=== PATIENT | male | born 1990 | race Caucasian/White ===

== ENCOUNTER 2020-08-11 19:08 | Emergency (ER) | payer SELFPAY ==
[~2020-08-11] VITALS: Ht 162.6 cm; Wt 52.1 kg
[2020-08-11 19:25] VITALS: BP 145/82
[2020-08-11] MEDS ORDERED: AMOX1TAB61 PO (19:41)
[2020-08-11] MEDS ORDERED: IBUP-1007 PO (19:41)
--- NOTE | 2020-08-11 19:41 | PHYS DOC ---
Past Medical History Past Medical History: Asthma (ESTHER ALDANA APRN) Past Surgical History: No Surgical History (ESTHER ALDANA APRN) Smoking Status: Current Some Day Smoker Alcohol Use: Occasionally Drug Use: Marijuana (ESTHER ALDANA APRN) General Adult EDM: Chief Complaint: PUNCTURE WOUND HPI: HPI: Patient is a 30 year old male who presents with walking his dog when a group of pit bulls came towards him and jumped on his dog. When he tried to pull his dog out of the group a dog turned around and bit him in the right radial side of the hand. This caused 1 puncture wound that is 0.5cm and has scant bleeding and the second right below it is superficial and smaller than 0.5cm. Rating his pain a 8 out of 10. Patient needs a tetanus shot. Please report was made. The nurse is calling animal control. Unknown rabies status. (ESTHER ALDANA APRN) Review of Systems: Review of Systems: Constitutional: Denies fever or chills. [] Eyes: Denies change in visual acuity. [] HENT: Denies nasal congestion or sore throat. [] Respiratory: Denies cough or shortness of breath. [] Cardiovascular: Denies chest pain or edema. [] GI: Denies abdominal pain, nausea, vomiting, bloody stools or diarrhea. [] : Denies dysuria. [] Musculoskeletal: Denies back pain or joint pain. +Right hand pain [] Integument: Denies rash. +Right dorsal hand radial side dog bite [] Neurologic: Denies headache, focal weakness or sensory changes. +Tingling to Right palm of hand.[] Endocrine: Denies polyuria or polydipsia. [] Lymphatic: Denies swollen glands. [] Psychiatric: Denies depression or anxiety. [] (ESTHER ALDANA SERVER SYSTEMS ADMINISTRATOR) Heart Score: Risk Factors: Risk Factors: DM, Current or recent (<one month) smoker, HTN, HLP, family history of CAD, obesity. Risk Scores: Score 0 - 3: 2.5% MACE over next 6 weeks - Discharge Home Score 4 - 6: 20.3% MACE over next 6 weeks - Admit for Clinical Observation Score 7 - 10: 72.7% MACE over next 6 weeks - Early Invasive Strategies (ESTHER ALDANA APRN) Allergies: Allergies: Allergies Coded Allergies Type Severity Reaction Last Updated Verified No Known Drug Allergies 05/13/16 No (ESTHER ALDANA APRN) Physical Exam: PE: Constitutional: Well developed, well nourished, no acute distress, non-toxic appearance. [] HENT: Normocephalic, atraumatic, bilateral external ears normal, oropharynx moist, no oral exudates, nose normal. [] Eyes: PERRLA, EOMI, conjunctiva normal, no discharge. [] Neck: Normal range of motion, no tenderness, supple, no stridor. [] Cardiovascular:Heart rate regular rhythm, no murmur [] Lungs & Thorax: Bilateral breath sounds clear to auscultation [] Abdomen: Bowel sounds normal, soft, no tenderness, no masses, no pulsatile masses. [] Skin: Warm, dry, no erythema, no rash. Right dorsal hand puncture wounds. [] Back: No tenderness, no CVA tenderness. [] Extremities: No tenderness, no cyanosis, no clubbing, ROM intact, no edema. [] Neurologic: Alert and oriented X 3, normal motor function, normal sensory function, no focal deficits noted. [] Psychologic: Affect normal, judgement normal, mood normal. [] (ESTHER ALDANA APRN) EKG: EKG: [] (ESTHER ALDANA APRN) Radiology/Procedures: Radiology/Procedures: [] Impression: [facility] [address] [place], [place] [id number] IMAGING REPORT Signed PATIENT: TAYA ARREGUIN ACCOUNT: [id number] : 1990 LOCATION: ER AGE: 30 SEX: M EXAM STATUS: REG ER ORD. PHYSICIAN: ESTHER ALDANA APRN REASON: right hand pain after being bit by dog. PROCEDURE: HAND RIGHT 3V Exam performed: Right hand 3 views. Indication: Right hand pain after being bit by a dog. Date of Service: 08/11/2020 Comparison: None available Discussion: PA, oblique lateral radiographs of the hand reveal the osseous structures to be intact and well aligned. The joint spaces are well-preserved. The articular margins are smooth. No soft tissue swelling or foreign bodies detected. Impression: Radiographically normal right hand. Electronically signed by: Melanie Wagner MD (08/11/2020 8:22 PM) [facility] DICTATED and SIGNED BY: MELANIE WAGNER MD DATE: 08/11/[id number] 0 (ESTHER ALDANA APRN) Course & Med Decision Making: Course & Med Decision Making Pertinent Labs and Imaging studies reviewed. (See chart for details) See HPI. Alert and oriented x4. Ambulatory with steady gait. Patient can make a full tight fist with the affected right hand. All joints are intact and no deformity. No joint swelling. No joint redness. The bites do not over joints. Skin pink warm and dry. Radial pulse is strong present. No swelling is noted at this time to the hand. Cap refill less than 2 seconds. No bruising is seen as of yet. Patient states there is slight tingling to the palm of the hand on the radial side just below the thumb. Patient is given a tetanus shot. It is cleaned with chlorhexidine and flushed with saline. Patient will be placed on Augmentin antibiotic. X-ray shows no acute findings. Police have been dispatched here to speak with the patient and also to the house where the dog to lives. Mare THURMAN spoke with Officer [employer] who was dispatched on this case and he stated that the dog whereabouts are unknown and he has not been called. He states that the rabies status is unknown. I will start the rabies prophylaxis and the patient. We will need to return on August 14, August 18, August 25 for rabies vaccines. [] (ESTHER ALDANA APRN) Course & Med Decision Making I have reviewed the PA/WINDOWS SYSTEMS ADMIN's note and Plan of Care. I was available for consultation as needed during the patient's visit in the emergency department. I agree with the clinical impression, plans and disposition. (VERONICA HARDING MD) Hector Disclaimer: Hector Disclaimer: This electronic medical record was generated, in whole or in part, using a voice recognition dictation system. (ESTHER ALDANA APRN) Departure Departure Impression: Primary Impression: Dog bite of hand Qualified Codes: S61.451A - Open bite of right hand, initial encounter; W54.0XXA - Bitten by dog, initial encounter Disposition: 01 DC HOME SELF CARE/HOMELESS Condition: STABLE Referrals: NO PCP (PCP) Patient Instructions: Animal Bite Additional Instructions: Follow-up with a primary care physician as needed. Keep the area clean and dry. Take antibiotic as it is prescribed and until it is gone. Return on 08/14, 08/18, and 08/25 for rabies vaccines. Scripts Ibuprofen (IBUPROFEN) 600 Mg Tablet 600 MG PO PRN Q6HRS PRN for INFLAMMATION, #20 TAB Prov: ESTHER ALDANA APRN 08/11/20 Amoxicillin/Potassium Clav (AUGMENTIN 875-125 TABLET) 1 Each Tablet 1 TAB PO BID for 10 Days, #20 TAB 0 Refills Prov: ESTHER ALDANA APRN 08/11/20 ESTHER ALDANA APRN Aug 11, 2020 19:41 VEORNICA HARDING MD Aug 11, 2020 21:14
[2020-08-11] MEDS ORDERED: IBUPROFEN 400 MG TABLET. PO ONE (20:00)
[2020-08-11] MEDS ORDERED: DIPH,PERTUSS(ACELL),TET VAC/PF 0.5 ML SYRINGE. VAX IM ONE (20:00)
--- NOTE | 2020-08-11 20:25 | RAD ---
Exam performed: Right hand 3 views. Indication: Right hand pain after being bit by a dog. Date of Service: 08/11/2020 Comparison: None available Discussion: PA, oblique lateral radiographs of the hand reveal the osseous structures to be intact and well align ed. The joint spaces are well-preserved. The articular margins are smooth. No soft tissue swelling or foreign bodies detected. Impression: Radiographically normal right hand. Electronically signed by: Melanie Wagner MD (08/11/2020 8:22 PM) [facility]
[2020-08-11] MEDS ORDERED: RABIES IMMUNE GLOBULIN PF 300 UNIT / 1 ML VIAL. VAX IM ONE (21:00)
[2020-08-11] MEDS ORDERED: RABIES IMMUNE GLOBULIN PF 300 UNIT/ML 5ML VIAL VAX IM ONE (21:15)
[2020-08-11] MEDS ORDERED: RABIES VIRUS VACC PF 2.5 UNIT / 1 ML VIAL. VAX IM ONE (21:30)
== END 2020-08-11 21:40 | disposition home or self-care (01) ==
LOC: ER 19:08
DX: S61.451A Open bite of right hand, initial encounter (principal); J45.909 Unspecified asthma, uncomplicated; F12.90 Cannabis use, unspecified, uncomplicated; F17.200 Nicotine dependence, unspecified, uncomplicated; W54.0XXA Bitten by dog, initial encounter; Y93.89 Activity, other specified; Y92.89 Other specified places as the place of occurrence of the external cause; Y99.8 Other external cause status
CPT/HCPCS: 73130; 90375; 90471; 90675; 90715; 99284

== ENCOUNTER 2020-08-14 21:27 | Emergency (ER) | payer SELFPAY ==
[~2020-08-14] VITALS: Ht 162.6 cm; Wt 59.0 kg
[~2020-08-14 21:27] MED LIST: AMOX1TAB61 PO; IBUP-1007 PO
[2020-08-14 22:55] VITALS: BP 112/89
[2020-08-14] MEDS: RABIES VIRUS VACC PF 2.5 UNIT / 1 ML VIAL. VAX IM ONE (23:02)
--- NOTE | 2020-08-14 23:05 | PHYS DOC ---
Past Medical History Past Medical History: No Pertinent History, Asthma Past Surgical History: No Surgical History Smoking Status: Current Every Day Smoker Alcohol Use: Occasionally Drug Use: Marijuana General Adult EDM: Chief Complaint: OTHER COMPLAINTS HPI: HPI: Patient is a 30 year old male who presents to the ED today for rabies vaccine. Patient had a dog bite on the right hand on August 11, 2020. Review of Systems: Review of Systems: Constitutional: Denies fever or chills. [] Musculoskeletal: Denies back pain or joint pain. [] Integument: Dog bite to the right hand, rabies vaccine Neurologic: Denies headache, focal weakness or sensory changes. [] Psychiatric: Denies depression or anxiety. [] Heart Score: Risk Factors: Risk Factors: DM, Current or recent (<one month) smoker, HTN, HLP, family history of CAD, obesity. Risk Scores: Score 0 - 3: 2.5% MACE over next 6 weeks - Discharge Home Score 4 - 6: 20.3% MACE over next 6 weeks - Admit for Clinical Observation Score 7 - 10: 72.7% MACE over next 6 weeks - Early Invasive Strategies Current Medications: Current Medications Medications (Trade) Dose Ordered Sig/Jamil Start Time Stop Time Status Last Admin Dose Admin Rabies Vaccine Human Diploid Cell (Imovax Rabies 2.5 Unit / ml) 1 ml ONCE ONCE 08/14/20 23:00 08/14/20 23:01 DC 08/14/20 23:02 1 ML Allergies: Allergies: Allergies Coded Allergies Type Severity Reaction Last Updated Verified No Known Drug Allergies 05/13/16 No Physical Exam: PE: Constitutional: Well developed, well nourished, no acute distress, non-toxic appearance. [] Skin: Warm, dry, scabbed over puncture wound approximately 1 cm noted on the mid aspect of the right thumb metacarpal. No signs of infection. Back: No tenderness, no CVA tenderness. [] Extremities: No tenderness, no cyanosis, no clubbing, ROM intact, no edema. [] Neurologic: Alert and oriented X 3, normal motor function, normal sensory function, no focal deficits noted. [] Psychologic: Affect normal, judgement normal, mood normal. [] EKG: EKG: [] Radiology/Procedures: Radiology/Procedures: [] Course & Med Decision Making: Course & Med Decision Making Pertinent Labs and Imaging studies reviewed. (See chart for details) This is a 30-year-old male patient presenting to the ED today for rabies vaccine. Patient had a dog bite on August 11, 2020. He was given rabies vaccine. The remaining 2 doses will be administered as an outpatient if he comes when they are open. Prescription was given to him for the rest of the orders Dragon Disclaimer: Dragon Disclaimer: This electronic medical record was generated, in whole or in part, using a voice recognition dictation system. Departure Departure Impression: Primary Impression: Dog bite Qualified Codes: W54.0XXD - Bitten by dog, subsequent encounter Disposition: 01 DC HOME SELF CARE/HOMELESS Condition: STABLE Referrals: NO PCP (PCP) [facility] for rabies vaccine on August 18, 2020, August 25, 2020. Patient Instructions: Animal Bite, [id number] Additional Instructions: Please follow-up with [facility] on August 18, 2019 in August 25, 2019 for rabies vaccine ANA SANTOS APRN Aug 14, 2020 23:05
== END 2020-08-14 23:10 | disposition home or self-care (01) ==
LOC: ER 21:27
DX: S61.451A Open bite of right hand, initial encounter (principal); F17.200 Nicotine dependence, unspecified, uncomplicated; J45.909 Unspecified asthma, uncomplicated; W54.0XXA Bitten by dog, initial encounter; Y93.89 Activity, other specified; Y92.89 Other specified places as the place of occurrence of the external cause; Y99.8 Other external cause status
CPT/HCPCS: 90471; 90675; 99283